=== PATIENT | female | born 1975 | race Caucasian/White ===

== ENCOUNTER 2016-06-21 12:20 | Emergency (ER) | payer OTHER ==
[2016-06-21 12:25] VITALS: TEMP 98.9; O2SAT 100
--- NOTE | 2016-06-21 12:52 | C.PDOC ---
History Of Present Illness 41 yr old female presents to the ER stating yesterday she stepped on a nail with her right foot. Patient reports of a small wound with bleeding. Patient is here requesting a tetanus shot. Patient denies LOC, fever, nausea, vomiting, leg pain, weakness or numbness. Time Seen by Provider: 06/21/16 12:37 Chief Complaint (Nursing): Abnormal Skin Integrity History Per: Patient History/Exam Limitations: no limitations Onset/Duration Of Symptoms: Days (1) Past Medical History Reviewed: Historical Data, Nursing Documentation, Vital Signs Vital Signs: Last Vital Signs Temp 98.9 F 06/21/16 12:23 Pulse 100 H 06/21/16 12:23 Resp 12 06/21/16 12:23 BP 128/86 06/21/16 12:23 Pulse Ox 100 06/21/16 12:54 - Medical History PMH: HTN Family History: States: No Known Family Hx - Social History Hx Alcohol Use: Yes Hx Substance Use: No - Immunization History Hx Tetanus Toxoid Vaccination: No Hx Influenza Vaccination: No Hx Pneumococcal Vaccination: No Review Of Systems Except As Marked, All Systems Reviewed And Found Negative. Constitutional: Negative for: Fever Gastrointestinal: Negative for: Nausea, Vomiting Musculoskeletal: Positive for: Other (Stepped on a nail with right foot). Negative for: Leg Pain Neurological: Negative for: Weakness, Numbness Physical Exam - Physical Exam Appears: Well, Non-toxic, No Acute Distress Skin: Warm, Dry, No Rash Head: Atraumatic, Normacephalic Extremity: Normal ROM, Other (Right Foot - No visable puncture wound. No redness. No swelling. No tenderness.) Pulses: Left Dorsalis Pedis: Normal, Right Dorsalis Pedis: Normal Neurological/Psych: Oriented x3, Normal Speech, Normal Motor ED Course And Treatment O2 Sat by Pulse Oximetry: 100 Medical Decision Making Medical Decision Making: PLAN: * Tetanus IM Disposition - Disposition Referrals: [facility] [Outside] Disposition: HOME/ ROUTINE Disposition Time: 12:54 Condition: GOOD Additional Instructions: Please follow up with your doctor. Return to the ER for any worsening pain, swelling, redness, or for any other concerns. Instructions: Diphtheria/Tetanus Vaccine (By injection) Forms: General Discharge Instructions - Clinical Impression Clinical Impression: Puncture wound of foot - Scribe Statement The provider has reviewed the documentation as recorded by the Scribe Myesha Vinayak Provider Attestation: All medical record entries made by the Carleen were at my direction and personally dictated by me. I have reviewed the chart and agree that the record accurately reflects my personal performance of the history, physical exam, medical decision making, and the department course for this patient. I have also personally directed, reviewed, and agree with the discharge instructions and disposition.
[2016-06-21] MEDS ORDERED: Tetanus/Diphtheria Toxoids 0.5 ml Syringe IM ONE ×2 (13:22→13:27)
[2016-06-21 14:06] VITALS: BP 128/76; PULSE 80; RESP 20
== END 2016-06-21 13:00 | disposition home or self-care (01) ==
LOC: C.ER 12:20
DX: S91.331A Puncture wound without foreign body, right foot, initial encounter (principal); W45.0XXA Nail entering through skin, initial encounter